=== PATIENT | female | born 1940 | race Caucasian/White ===

== ENCOUNTER 2018-02-01 08:08 | Emergency (ER) | payer MEDICARE ==
[~2018-02-01 08:08] MED LIST: NO CURRENT MEDS
--- NOTE | 2018-02-01 08:35 | ER Report ---
History and Physical Time Seen By MD: 08:12 HPI/ROS CHIEF COMPLAINT: I have the flu HISTORY OF PRESENT ILLNESS: 77-year-old otherwise healthy female presents with concern for influenza was exposed to has been tested positive for the flu recently and she did not get a flu shot this year. She is unsure if he was diagnosed with influenza A and influenza B. Since exposures she has developed lightheadedness dizziness and a mild dry cough. She's vomited a small amount about a cupful. No abdominal pain no chest pain no shortness of breath no leg pain or swelling no cold sweats. She does endorse dry mouth, but is able to drink oral fluids. REVIEW OF SYSTEMS: Respiratory: No hemoptysis, no dyspnea. Cardiovascular: No chest pain, no palpitations. Gastrointestinal: Diarrhea 2 weeks ago, no abdominal pain. Musculoskeletal: No back pain. Allergies: Coded Allergies: No Known Drug Allergies (Verified , 04/07/12) Uncoded Allergies: PEANUTS (Allergy, Severe, 02/01/18) Home Meds Discontinued Reported Medications [No Current Meds] No Conflict Check, 0 Refills 10/09/11 Constitutional Vital Sign - Last 24 Hours 02/01/18 02/01/18 02/01/18 02/01/18 08:12 08:18 08:23 08:30 Temp 97.8 Pulse 73 69 Resp 14 B/P (MAP) 134/93 134/93 (107) 144/74 (97) Pulse Ox 96 96 O2 Delivery Room Air 02/01/18 02/01/18 02/01/18 02/01/18 08:30 08:33 08:35 08:37 Pulse 62 73 Resp 14 14 B/P (MAP) 144/74 (97) 131/83 (99) 131/83 (99) 130/87 (101) Pulse Ox 94 92 O2 Delivery Room Air Room Air 02/01/18 02/01/18 02/01/18 02/01/18 08:38 08:40 08:53 09:00 Pulse 78 80 68 Resp 14 B/P (MAP) 130/87 (101) 128/92 (104) Pulse Ox 94 95 96 O2 Delivery Room Air 02/01/18 02/01/18 02/01/18 09:30 09:38 09:53 Pulse 63 66 B/P (MAP) 147/89 (108) Pulse Ox 95 Intake and Output 02/01/18 02/01/18 02/02/18 15:00 23:00 07:00 Intake Total 1000 ml Balance 1000 ml Physical Exam General Appearance: The patient is alert, has no immediate need for airway protection and no current signs of toxicity. No acute distress Eyes: Pupils equal and round no injection. Respiratory: Chest is non tender, lungs are clear to auscultation. Cardiac: regular rate and rhythm no murmurs gallops or rubs Gastrointestinal: Abdomen is soft and non tender, no masses, bowel sounds normal. Musculoskeletal: Neck: Neck is supple and non tender. Extremities have full range of motion and are non tender. Skin: No rashes or lesions. No edema DIFFERENTIAL DIAGNOSIS: After history and physical exam differential diagnosis was considered for influenza over wrist or a viral infection no signs of acute coronary syndrome M, sepsis or other serious process. Medical Decision Making Data Points Laboratory Hematology Test 02/01/18 08:17 02/01/18 08:23 Urine Color Ric[place]le Urine Clarity Cloudy Urine pH 5.0 pH (4.8-9.5) Urine Specific [place] 1.017 Urine Protein Negative mg/dL (NEGATIVE) Urine Glucose (UA) Negative mg/dL (NEGATIVE) Urine Ketones 20 mg/dL (NEGATIVE) Urine Blood Small (NEGATIVE) Urine Nitrite Positive (NEGATIVE) Urine Bilirubin Negative (NEGATIVE) Urine Urobilinogen 2.0 mg/dL (0.2-1.9) Urine Leukocyte Esterase Moderate (NEGATIVE) Urine RBC 8 /HPF (0-2/HPF) Urine WBC 66 /HPF (0-5/HPF) Urine Squamous Epithelial Cells Few /LPF (</=FEW) Urine Transitional Epithelial Cells Few /LPF (NONE-FEW) Urine Calcium Oxalate Crystals Moderate /HPF (NONE) Urine Bacteria Many /HPF (NONE-FEW) Urine Mucus Few /HPF (NONE-FEW) Influenza Virus Type A (PCR) Negative (NEGATIVE) Influenza Virus Type B (PCR) Positive (NEGATIVE) Chemistry Test 02/01/18 08:17 02/01/18 08:23 Urine Color [place]le Urine Clarity Cloudy Urine pH 5.0 pH (4.8-9.5) Urine Specific [place] 1.017 Urine Protein Negative mg/dL (NEGATIVE) Urine Glucose (UA) Negative mg/dL (NEGATIVE) Urine Ketones 20 mg/dL (NEGATIVE) Urine Blood Small (NEGATIVE) Urine Nitrite Positive (NEGATIVE) Urine Bilirubin Negative (NEGATIVE) Urine Urobilinogen 2.0 mg/dL (0.2-1.9) Urine Leukocyte Esterase Moderate (NEGATIVE) Urine RBC 8 /HPF (0-2/HPF) Urine WBC 66 /HPF (0-5/HPF) Urine Squamous Epithelial Cells Few /LPF (</=FEW) Urine Transitional Epithelial Cells Few /LPF (NONE-FEW) Urine Calcium Oxalate Crystals Moderate /HPF (NONE) Urine Bacteria Many /HPF (NONE-FEW) Urine Mucus Few /HPF (NONE-FEW) Influenza Virus Type A (PCR) Negative (NEGATIVE) Influenza Virus Type B (PCR) Positive (NEGATIVE) Urinalysis Test 02/01/18 08:17 Urine Color Ric[place]le Urine Clarity Cloudy Urine pH 5.0 pH (4.8-9.5) Urine Specific [place] 1.017 Urine Protein Negative mg/dL (NEGATIVE) Urine Glucose (UA) Negative mg/dL (NEGATIVE) Urine Ketones 20 mg/dL (NEGATIVE) Urine Blood Small (NEGATIVE) Urine Nitrite Positive (NEGATIVE) Urine Bilirubin Negative (NEGATIVE) Urine Urobilinogen 2.0 mg/dL (0.2-1.9) Urine Leukocyte Esterase Moderate (NEGATIVE) Urine RBC 8 /HPF (0-2/HPF) Urine WBC 66 /HPF (0-5/HPF) Urine Squamous Epithelial Cells Few /LPF (</=FEW) Urine Transitional Epithelial Cells Few /LPF (NONE-FEW) Urine Calcium Oxalate Crystals Moderate /HPF (NONE) Urine Bacteria Many /HPF (NONE-FEW) Urine Mucus Few /HPF (NONE-FEW) ED Course/Re-evaluation ED Course Plan of care agree upon patient wants influenza testing does not not feel further testing is needed. Not sure why she didn't go to the urgent care. I explained to her the in the emergency room we occasionally need to perform further testing to make sure nothing more serious is going on. She is not interested in further testing at this time. No signs of serious or dangerous process at this time. She is drinking water in the emergency department. Influenza testing will be performed. Vitals were reviewed. 02/01/2018 8:44:53 am orthostatic vitals positive will provide IV fluids 1 L and S bolus. Re-evaluation Significant improvement reported after IV fluids Decision to Disposition Date: Feb 01, 2018 Decision to Disposition Time: 10:35 Depart Departure Latest Vital Signs Vital Signs Date Time Temp Pulse Resp B/P (MAP) Pulse Ox O2 Delivery O2 Flow Rate FiO2 02/01/18 09:53 66 02/01/18 09:38 95 02/01/18 09:30 147/89 (108) 02/01/18 08:40 14 Room Air 02/01/18 08:12 97.8 Impression: Primary Impression: Influenza B Additional Impression: UTI (urinary tract infection) Condition: Improved Disposition: HOME OR SELF-CARE Referrals: ROSS MCDONALD MD (PCP) New Scripts Oseltamivir Phosphate (TAMIFLU) 75 Mg Cap 75 MG PO BID for 5 Days, #10 CAP 0 Refills Prov: VINCE ALMAZAN MD 02/01/18 Nitrofurantoin Monohyd/M-Cryst (MACROBID 100 MG CAPSULE) 100 Mg Capsule 100 MG PO BID for 10 Days, #20 CAPSULE Prov: VINCE ALMAZAN MD 02/01/18 Patient Instructions: Influenza (ED), Urinary Tract Infection in Women (ED) [employer]ISTANT/PA consult with MD: Examined Patient Problem Qualifiers Additional Impression: UTI (urinary tract infection) Urinary tract infection type: site unspecified Hematuria presence: without hematuria Qualified Codes: N39.0 - Urinary tract infection, site not specified VINCE ALMAZAN MD Feb 01, 2018 08:35
[2018-02-01] MEDS ORDERED: NS(*) 0.9% 1000 ML BAG 1,000 ML IV ONE (08:45)
[2018-02-01 10:30] VITALS: BP 140/93
[2018-02-01] MEDS ORDERED: NITR-105 PO (10:37)
[2018-02-01] MEDS ORDERED: OSE75 PO (10:37)
== END 2018-02-01 10:50 | disposition home or self-care (01) ==
LOC: ER 08:17
DX: J11.1 Influenza due to unidentified influenza virus with other respiratory manifestations (principal); N39.0 Urinary tract infection, site not specified
CPT/HCPCS: 81001; 87502; 96360; 99283; J7030